=== PATIENT | male | born 1965 | race Caucasian/White ===

== ENCOUNTER 2019-06-01 13:00 | Observation (INO) | payer SELFPAY ==
[~2019-06-01] VITALS: Ht 175.3 cm; Wt 96.2 kg
[2019-06-01 13:28] LABS: BASOPHILS % (AUTO) 0.3 % (0.0-5.0); EOSINOPHILS % (AUTO) 3.1 % (0.0-8.0); HEMATOCRIT 51.4 % (42-54); LYMPHOCYTES % (AUTO) 32.2 % (21.0-51.0); MEAN CORPUSCULAR HEMOGLOBIN 32.6 pg (27.0-33.0); MEAN CORPUSCULAR VOLUME 95.9 fL (79-99); MONOCYTES % (AUTO) 5.2 % (3.0-13.0); NEUTROPHILS % (AUTO) 59.2 % (40.0-77.0); PLATELET COUNT (AUTO) 193 K/uL (130-400); RED BLOOD CELL COUNT(AUTO) 5.36 MIL/uL (4.50-6.20); RED CELL DISTRIBUTION WIDTH 13.6 % (11.0-15.5); WHITE BLOOD COUNT (AUTO) 9.7 K/uL (4.8-10.8)
[2019-06-01 13:39] LABS: INR 1.3 (0.85-1.15); PROTHROMBIN TIME 13.5 SEC (9.6-11.6)
[2019-06-01 13:41] LABS: APPEARANCE,URINE Clear (CLEAR); BILIRUBIN,URINE Negative (NEGATIVE); COLOR,URINE Yellow (YELLOW); GLUCOSE, URINE (UA) Negative (NEGATIVE); KETONES,URINE Negative (NEGATIVE); LEUKOCYTE ESTERASE ,URINE Negative (NEGATIVE); NITRATE,URINE Negative (NEGATIVE); OCCULT BLOOD,URINE Negative (NEGATIVE); PH,URINE 6.5 (5.0-8.0); PROTEIN,URINE Negative (NEGATIVE); UROBILINOGEN,URINE 0.2 mg/dL (0.2-1.0)
[2019-06-01 13:45] LABS: ALANINE AMINOTRANSFERASE 66 U/L (12-78); AMMONIA 12 umol/L (11-32); ASPARTATE AMINOTRANSFERASE 86 U/L (10-37); BILIRUBIN,TOTAL 0.6 mg/dL (0.2-1.0); CARBON DIOXIDE 26 mmol/L (21-32); CHLORIDE 102 mmol/L (101-111); CREATINE KINASE, TOTAL 116 U/L (21-232); SODIUM SERUM 141 mmol/L (136-145); TOTAL PROTEIN, SERUM 8.8 g/dL (6.0-8.3)
[2019-06-01 13:46] LABS: GLOMERULAR FILTR. RATE CALC 83 mL/min (>60); GLUCOSE,RANDOM 151 mg/dL (70-105); UREA NITROGEN, BLOOD 11 mg/dL (7-18)
[2019-06-01 13:47] LABS: ALBUMIN 3.7 g/dL (3.5-5.0); SALICYLATE < 2.8 mg/dL (2.8-20.0)
[2019-06-01 13:48] LABS: AMPHET/METH SCREEN,URINE NEGATIVE (NEGATIVE); BARBITURATE SCREEN, URINE NEGATIVE (NEGATIVE); BENZODIAZEPINES SCREEN,URINE NEGATIVE (NEGATIVE); CANNABINOID SCREEN,URINE NEGATIVE (NEGATIVE); COCAINE SCREEN,URINE NEGATIVE (NEGATIVE); OPIATE SCREEN,URINE NEGATIVE (NEGATIVE); PHENCYCLIDINE SCREEN,URINE NEGATIVE (NEGATIVE)
[2019-06-01 13:53] LABS: ACETAMINOPHEN < 1 mcg/mL (10-29); AMYLASE 77 U/L (25-115); LIPASE 96 U/L (114-286)
[2019-06-01 13:54] LABS: ALCOHOL, BLOOD 463 mg/dL (0-10)
[2019-06-01] MEDS ORDERED: SODIUM CHLORIDE 0.9% 1000ML 1,000 ML IV ONE ×2 (13:56→15:01)
[2019-06-01] MEDS ORDERED: THIAMINE HCL 100 MG/ML 2ML VIAL ONE (13:58)
[2019-06-01] MEDS ORDERED: ACETAMINOPHEN 325 MG TAB PO PRN (15:15)
[2019-06-01] MEDS ORDERED: PHARMACY COMMUNICATION MISC PRN (15:15)
[2019-06-01] MEDS ORDERED: LORAZEPAM 2 MG/ML 1 ML VIAL IVP PRN (15:15)
[2019-06-01] MEDS ORDERED: ONDANSETRON HCL 4 MG/2 ML VIAL IVP PRN (15:15)
[2019-06-01] MEDS ORDERED: CHLORDIAZEPOXIDE HCL 25 MG CAP PO PRN (15:15)
[2019-06-01] MEDS: M.V.I. IV [ADULT] 10 ML, FOLIC ACID 1 MG, THIAMINE HCL 100 MG in SODIUM CHLORIDE 0.9% 1... IV SCH (15:25)
[2019-06-01 17:29] VITALS: BP 155/97
[2019-06-01 20:33] VITALS: BP 142/95
[2019-06-01 23:50] VITALS: BP 135/91
[2019-06-02 04:09] VITALS: BP 141/95
[2019-06-02 08:17] VITALS: BP 147/96
[2019-06-02] MEDS: M.V.I. IV [ADULT] 10 ML, FOLIC ACID 1 MG, THIAMINE HCL 100 MG in SODIUM CHLORIDE 0.9% 1... IV SCH (08:57)
[2019-06-02] MEDS ORDERED: ENOXAPARIN SODIUM 30 MG/0.3 ML SQ SCH (09:00)
[2019-06-02] MEDS ORDERED: THIAMINE HCL 100 MG/ML 2ML VIAL IVP SCH (09:00)
[2019-06-02] MEDS ORDERED: FOLIC ACID 1 MG TABLET PO SCH (09:00)
[2019-06-02] MEDS ORDERED: THIA500T3 PO (11:16)
[2019-06-02] MEDS ORDERED: FOLI1 PO (11:16)
[2019-06-02 11:46] VITALS: BP 148/100
[2019-06-02] MEDS ORDERED: AMLODIPINE BESYLATE 5 MG TAB PO SCH (12:15)
[2019-06-02] MEDS ORDERED: AMLODIPINE BESYLATE 5 MG TAB ONE (12:20)
[2019-06-02 13:00] VITALS: BP 144/90
--- NOTE | 2019-06-02 14:35 | NUR ---
SUBSTANCE ABUSE RESOURCES Sw contacted by nurse Milena of order for alcohol Cessation. Sw met with pt and provided him with substance abuse resources, pt stated he will review when he has time.
--- NOTE | 2019-06-02 16:25 | NUR ---
DISCHARGE PATIENT/MOTHER GIVEN DISCHARGE INSTRUCTIONS VIA TEACH BACK. 2OG PIV TO RAC DISCONTINUED, TIP INTACT. TELE MONITOR REMOVED AND RETURNED TO TELEMETRY. PATIENT GIVEN ALCOHOL CESSATION INFORMATION BY SPECIALIZED LANGUAGE INSTRUCTOR (REAGAN). NO SIGN OF ALCOHOL WITHDRAWAL NOTED AT THIS TIME. RX CALLED INTO [facility] [place] FOR FOLIC ACID AND THIAMINE. PATIENT WHEELED DOWN TO LOBBY BY ALESHA DOBSON. PATIENT STABLE AT THIS TIME.
== END 2019-06-02 16:30 | disposition home or self-care (01) ==
LOC: EDH 13:00 → EDHIP 13:01 → 3BH 17:21
PROVIDERS: ADMIT Family Medicine; ATTEND Family Medicine
DX: G31.2 Degeneration of nervous system due to alcohol (principal); F10.129 Alcohol abuse with intoxication, unspecified; I10 Essential (primary) hypertension; R41.82 Altered mental status, unspecified; Y90.8 Blood alcohol level of 240 mg/100 ml or more
CPT/HCPCS: 36415; 70450; 71045; 80053; 80305; 81003; 82140; 82150; 82550; 82948; 83690; 84484; 85025; 85610; 85730; 93005; 96365; 96366; 96375; 96376; 99284; G0378 ×15; G0480 ×2; G0481; J2060; J3411 ×2; J3490; J7030 ×2; J1650